=== PATIENT | female | born 1985 | race American Indian/Alaskan Native ===

== ENCOUNTER 2019-05-25 15:15 | Emergency (ER) | payer SELFPAY ==
--- NOTE | 2019-05-25 15:52 | Event Note ---
ED Screening Note Date of service: 05/25/19 Time: 15:51 ED Screening Note: 34 y o female presents with headache s/p syncopal episode in the shower at home today, no injury head This initial assessment/diagnostic orders/clinical plan/treatment(s) is/are subject to change based on patients health status, clinical progression and re- assessment by fellow clinical providers in the ED. Further treatment and workup at subsequent clinical providers discretion. Patient/guardian urged not to elope from the ED as their condition may be serious if not clinically assessed and managed. Initial orders include: labs,ua, acc eval
[2019-05-25 15:54] VITALS: BP 141/85
[2019-05-25 16:31] LABS: Bilirubin,Urine NEG (Negative); Blood,Urine NEG (Negative); Color,Urine Yellow (Yellow); Mucus,Urine FEW /HPF; Protein,Urine <15 mg/dL mg/dL (Negative); Urobilinogen,Urine < 2.0 mg/dL (<2.0)
[2019-05-25 19:08] LABS: Basophils % (Auto) 0.1 % (0.0-1.8); Eosinophils % (Auto) 1.1 % (0.0-4.3); Hematocrit 36.3 % (30.3-42.9); Hemoglobin 11.4 gm/dl (10.1-14.3); Lymphocytes # (Auto) 1.1 K/mm3 (1.2-5.4); Lymphocytes % (Auto) 28.5 % (13.4-35.0); Mean Corpuscular HGB Conc 31 % (30-34); Mean Corpuscular Volume 76 fl (79-97); Monocytes # (Auto) 0.3 K/mm3 (0.0-0.8); Monocytes % (Auto) 8.3 % (0.0-7.3); Platelet Count 161 K/mm3 (140-440); Red Cell Distribution Width 14.3 % (13.2-15.2)
[2019-05-25 19:24] LABS: Alanine Aminotransferase 11 units/L (7-56); Albumin 4.1 g/dL (3.9-5); BUN/Creatinine Ratio 15; Blood Urea Nitrogen 9 mg/dL (7-17); Calcium 9.1 mg/dL (8.4-10.2); Hemolysis Index 4
--- NOTE | 2019-05-25 20:11 | XRay Report ---
CHEST 2 VIEWS INDICATION / CLINICAL INFORMATION: Syncope upt. COMPARISON: None available. FINDINGS: SUPPORT DEVICES: None. HEART / MEDIASTINUM: No significant abnormality. LUNGS / PLEURA: No significant pulmonary or pleural abnormality. No pneumothorax. ADDITIONAL FINDINGS: No significant additional findings. IMPRESSION: 1. No acute findings. Signer Name: Chase Jeter MD Signed: 05/25/2019 8:07 PM Workstation Name: [id number]
[2019-05-26] MEDS ORDERED: diphenhydrAMINE 25 MG CAP PO ONE (00:48)
[2019-05-26] MEDS ORDERED: METOCLOPRAMIDE 10 MG TAB PO ONE (00:48)
--- NOTE | 2019-05-26 01:20 | Cat Scan Report ---
CT head/brain wo con INDICATION / CLINICAL INFORMATION: 34 years Female; syncope. TECHNIQUE: Routine CT head without contrast. All CT scans at this location are performed using CT dos e reduction for ALARA by means of automated exposure control. COMPARISON: None. FINDINGS: BRAIN / INTRACRANIAL CONTENTS: No acute hemorrhage, mass effect, midline shift, hydrocephalus, or acu te, large territorial infarct. No chronic infarct or atrophy appreciated. No significant white matter abnormality. CRANIOCERVICAL JUNCTION: No significant abnormality. ORBITS: No significant abnormality of visualized orbits. SINUSES / MASTOIDS: No significant abnormality the visualized paranasal sinuses or mastoid air cells. ADDITIONAL FINDINGS: Prominent soft tissue is seen in the roof the nasopharynx, presumably related to reactive adenoidal tissue. Please clinically correlate. IMPRESSION: 1. No focal mass, hemorrhage, hydrocephalus, or acute, large territorial infarct. Signer Name: Everton Walker MD, III Signed: 05/26/2019 1:15 AM Workstation Name: [id number]
--- NOTE | 2019-05-26 01:42 | Emergency Department Report ---
ED Syncope HPI - General Chief Complaint: Syncope Stated Complaint: BLACKOUT/DIZZINES Time Seen by Provider: 05/26/19 00:36 - History of Present Illness Initial Comments: Patient is a 30-year-old who presents to emergency room with complaints of a syncopal episode that occurred earlier today. Patient states that she was shampooing her hair in the shower when she had the syncopal episode and woke up laying in the floor of the bathtub. She states she before the syncopal episode that she felt a tingling sensation in her right arm and the right side of her face. she denies the tingling at all currently. She denies any dizziness or chest pain prior to the episode. She denies any nausea, vomiting, diarrhea, fever, recent illness, vision changes, numbness, weakness, speech or gait disturbance. She states that she does have a throbbing headache currently. She states that she had a similar episode in December of this year. she states she has a PMHx of migraines since childhood. She states her last cycle was 2 weeks ago. She is a nonsmoker, nondrinker, nondrug use. - Related Data Allergies/Adverse Reactions: Allergies adhesive Allergy (Verified 05/25/19 15:54) Rash aspirin Allergy (Verified 05/25/19 15:54) Hives butorphanol tartrate [From Stadol] Allergy (Verified 05/25/19 15:54) irrirational behaviour magnesium Allergy (Verified 05/25/19 15:54) bradycardia oxytocin [From Pitocin] Allergy (Verified 05/25/19 15:54) bradycardia Home Medications: Ambulatory Orders Ciprofloxacin HCl [Ciprofloxacin TAB] 500 mg PO BID #14 tablet 07/16/15 Famotidine [Pepcid] 20 mg PO DAILY #30 tablet 07/16/15 traMADoL [Ultram 50 MG tab] 50 - 100 mg PO Q8HR PRN #20 tablet 07/16/15 ED Review of Systems ROS: Stated complaint: BLACKOUT/DIZZINES Other details as noted in HPI Comment: All other systems reviewed and negative ED Past Medical Hx - Past Medical History Previous Medical History?: Yes Hx Hypertension: No Hx Congestive Heart Failure: No Hx Diabetes: No Hx Deep Vein Thrombosis: No Hx Pulmonary Embolism: Yes (2011) Hx Renal Disease: No Hx Sickle Cell Disease: No Hx Headaches / Migraines: Yes (migraines in the past) Hx Seizures: No Hx Asthma: No Hx COPD: No Hx HIV: No - Surgical History Past Surgical History?: Yes Additional Surgical History: tubal ligation - Social History Smoking Status: Current Every Day Smoker Substance Use Type: None - Medications Home Medications: Home Medications Medication Instructions Recorded Confirmed Last Taken Type Ciprofloxacin HCl [Ciprofloxacin 500 mg PO BID #14 tablet 07/16/15 Unknown Rx TAB] Famotidine [Pepcid] 20 mg PO DAILY #30 tablet 07/16/15 Unknown Rx traMADoL [Ultram 50 MG tab] 50 - 100 mg PO Q8HR PRN #20 tablet 07/16/15 Unknown Rx ED Physical Exam - General Limitations: No Limitations General appearance: alert, in no apparent distress - Head Head exam: Present: atraumatic, normocephalic - Eye Eye exam: Present: normal appearance - ENT ENT exam: Present: mucous membranes moist - Respiratory Respiratory exam: Present: normal lung sounds bilaterally. Absent: respiratory distress, wheezes, rales, rhonchi, stridor, chest wall tenderness, accessory muscle use, decreased breath sounds, prolonged expiratory - Cardiovascular Cardiovascular Exam: Present: regular rate, normal rhythm, normal heart sounds. Absent: systolic murmur, diastolic murmur, rubs, gallop - Neurological Exam Neurological exam: Present: alert, oriented X3, CN II-XII intact, normal gait, other (normal finger to nose, normal heel to cooper, 5/5 muscle strength in the BUE/BLE, equal biology professor strength, sensation intact throughout, no focal neuro deficit). Absent: motor sensory deficit - Psychiatric Psychiatric exam: Present: normal affect, normal mood - Skin Skin exam: Present: warm, dry, intact ED Course Vital Signs 05/25/19 05/26/19 15:51 02:19 Temperature 98.2 F Pulse Rate 77 68 Respiratory 18 16 Rate Blood Pressure 141/85 [Right] O2 Sat by Pulse 98 100 Oximetry ED Medical Decision Making - Lab Data Result diagrams: 05/25/19 18:32 05/25/19 18:32 Lab Results 05/25/19 05/25/19 05/25/19 Range/Units 16:14 18:32 18:32 WBC 4.0 L (4.5-11.0) K/mm3 RBC 4.80 (3.65-5.03) M/mm3 Hgb 11.4 (10.1-14.3) gm/dl Hct 36.3 (30.3-42.9) % MCV 76 L (79-97) fl MCH 24 L (28-32) pg MCHC 31 (30-34) % RDW 14.3 (13.2-15.2) % Plt Count 161 (140-440) K/mm3 Lymph % (Auto) 28.5 (13.4-35.0) % Wythe % (Auto) 8.3 H (0.0-7.3) % Eos % (Auto) 1.1 (0.0-4.3) % Baso % (Auto) 0.1 (0.0-1.8) % Lymph # 1.1 L (1.2-5.4) K/mm3 Wythe # 0.3 (0.0-0.8) K/mm3 Eos # 0.0 (0.0-0.4) K/mm3 Baso # 0.0 (0.0-0.1) K/mm3 Seg Neutrophils % 62.0 (40.0-70.0) % Seg Neutrophils # 2.5 (1.8-7.7) K/mm3 Sodium 143 (137-145) mmol/L Potassium 3.7 (3.6-5.0) mmol/L Chloride 108.7 H (98-107) mmol/L Carbon Dioxide 23 (22-30) mmol/L Anion Gap 15 mmol/L BUN 9 (7-17) mg/dL Creatinine 0.6 L (0.7-1.2) mg/dL Estimated GFR > 60 ml/min BUN/Creatinine Ratio 15 % Glucose 110 H (65-100) mg/dL Calcium 9.1 (8.4-10.2) mg/dL Total Bilirubin 0.30 (0.1-1.2) mg/dL AST 14 (5-40) units/L ALT 11 (7-56) units/L Alkaline Phosphatase 72 (35-129) units/L Troponin T (0.00-0.029) ng/mL Total Protein 7.3 (6.3-8.2) g/dL Albumin 4.1 (3.9-5) g/dL Albumin/Globulin Ratio 1.3 % HCG, Qual (Negative) Urine Color Yellow (Yellow) Urine Turbidity Clear (Clear) Urine pH 5.0 (5.0-7.0) Ur Specific Rose 1.020 (1.003-1.030) Urine Protein <15 mg/dl (Negative) mg/dL Urine Glucose (UA) Neg (Negative) mg/dL Urine Ketones Neg (Negative) mg/dL Urine Blood Neg (Negative) Urine Nitrite Neg (Negative) Urine Bilirubin Neg (Negative) Urine Urobilinogen < 2.0 (<2.0) mg/dL Ur Leukocyte Esterase Mod (Negative) Urine WBC (Auto) 4.0 (0.0-6.0) /HPF Urine RBC (Auto) 3.0 (0.0-6.0) /HPF U Epithel Cells (Auto) 7.0 (0-13.0) /HPF Urine Mucus Few /HPF 05/25/19 05/26/19 Range/Units 18:32 Unknown WBC (4.5-11.0) K/mm3 RBC (3.65-5.03) M/mm3 Hgb (10.1-14.3) gm/dl Hct (30.3-42.9) % MCV (79-97) fl MCH (28-32) pg MCHC (30-34) % RDW (13.2-15.2) % Plt Count (140-440) K/mm3 Lymph % (Auto) (13.4-35.0) % Wythe % (Auto) (0.0-7.3) % Eos % (Auto) (0.0-4.3) % Baso % (Auto) (0.0-1.8) % Lymph # (1.2-5.4) K/mm3 Wythe # (0.0-0.8) K/mm3 Eos # (0.0-0.4) K/mm3 Baso # (0.0-0.1) K/mm3 Seg Neutrophils % (40.0-70.0) % Seg Neutrophils # (1.8-7.7) K/mm3 Sodium (137-145) mmol/L Potassium (3.6-5.0) mmol/L Chloride (98-107) mmol/L Carbon Dioxide (22-30) mmol/L Anion Gap mmol/L BUN (7-17) mg/dL Creatinine (0.7-1.2) mg/dL Estimated GFR ml/min BUN/Creatinine Ratio % Glucose (65-100) mg/dL Calcium (8.4-10.2) mg/dL Total Bilirubin (0.1-1.2) mg/dL AST (5-40) units/L ALT (7-56) units/L Alkaline Phosphatase (35-129) units/L Troponin T < 0.010 (0.00-0.029) ng/mL Total Protein (6.3-8.2) g/dL Albumin (3.9-5) g/dL Albumin/Globulin Ratio % HCG, Qual Negative (Negative) Urine Color (Yellow) Urine Turbidity (Clear) Urine pH (5.0-7.0) Ur Specific Rose (1.003-1.030) Urine Protein (Negative) mg/dL Urine Glucose (UA) (Negative) mg/dL Urine Ketones (Negative) mg/dL Urine Blood (Negative) Urine Nitrite (Negative) Urine Bilirubin (Negative) Urine Urobilinogen (<2.0) mg/dL Ur Leukocyte Esterase (Negative) Urine WBC (Auto) (0.0-6.0) /HPF Urine RBC (Auto) (0.0-6.0) /HPF U Epithel Cells (Auto) (0-13.0) /HPF Urine Mucus /HPF - EKG Data EKG shows normal: sinus rhythm, axis, intervals, QRS complexes Rate: normal - EKG Data 05/26/19 01:57 non specific T wave inversion V1, V2, V3 no STEMI - Radiology Data Radiology results: report reviewed CT head/brain wo con INDICATION / CLINICAL INFORMATION: 34 years Female; syncope. TECHNIQUE: Routine CT head without contrast. All CT scans at this location are performed using CT dose reduction for ALARA by means of automated exposure control. COMPARISON: None. FINDINGS: BRAIN / INTRACRANIAL CONTENTS: No acute hemorrhage, mass effect, midline shift, hydrocephalus, or acute, large territorial infarct. No chronic infarct or atrophy appreciated. No significant white matter abnormality. CRANIOCERVICAL JUNCTION: No significant abnormality. ORBITS: No significant abnormality of visualized orbits. SINUSES / MASTOIDS: No significant abnormality the visualized paranasal sinuses or mastoid air cells. ADDITIONAL FINDINGS: Prominent soft tissue is seen in the roof the nasopharynx, presumably related to reactive adenoidal tissue. Please clinically correlate. IMPRESSION: 1. No focal mass, hemorrhage, hydrocephalus, or acute, large territorial infarct. Signer Name: Everton Walker MD, III Signed: 05/26/2019 1:15 AM Workstation Name: [id number] Transcribed By: HR Dictated By: Everton Walker MD Electronically Authenticated By: Everton Walker MD Signed Date/Time: 05/26/19114 DD/ 3 TD/TT: CHEST 2 VIEWS INDICATION / CLINICAL INFORMATION: Syncope upt. COMPARISON: None available. FINDINGS: SUPPORT DEVICES: None. HEART / MEDIASTINUM: No significant abnormality. LUNGS / PLEURA: No significant pulmonary or pleural abnormality. No pneumothorax. ADDITIONAL FINDINGS: No significant additional findings. IMPRESSION: 1. No acute findings. Signer Name: Chase Jeter MD Signed: 05/25/2019 8:07 PM Workstation Name: [id number] Transcribed By: TL Dictated By: Chase Jeter MD Electronically Authenticated By: Chase Jeter MD Signed Date/Time: 05/25/19 2007 - Medical Decision Making Patient is a 30-year-old who presents to emergency room with complaints of a syncopal episode that occurred earlier today. Patient states that she was shampooing her hair in the shower when she had the syncopal episode and woke up laying in the floor of the bathtub. She states she before the syncopal episode that she felt a tingling sensation in her right arm and the right side of her face. she denies the tingling at all currently. She denies any dizziness or chest pain prior to the episode. She denies any nausea, vomiting, diarrhea, fever, recent illness, vision changes, numbness, weakness, speech or gait disturbance. She states that she does have a throbbing headache currently. She states that she had a similar episode in December of this year. she states she has a PMHx of migraines since childhood. She states her last cycle was 2 weeks ago. She is a nonsmoker, nondrinker, nondrug use. VSS. labs are stable. UA without evidence of UTI. troponin is negative. CT head and CXR with no acute findings. PERC criteria negative for PE. on exam: normal finger to nose, normal heel to cooper, 5/5 muscle strength in the BUE/BLE, equal biology professor strength, sensation intact throughout, no focal neuro deficit. pt given reglan and benadryl while in the ED and her symptoms completely resolved. Symptoms could be related to a complex migraine, will have patient follow-up with a neurologist on an outpatient basis for further evaluation and management. advised pt to please follow up with a primary care doctor and a neurologist in the next 2-3 days. Return to the emergency room for any worsening symptoms. - Differential Diagnosis complex migraine, hypotension, hypoglycemia, CVA, ICH, arrhythmia Critical care attestation.: If time is entered above; I have spent that time in minutes in the direct care of this critically ill patient, excluding procedure time. ED Disposition Clinical Impression: Syncope Qualifiers: Syncope type: unspecified Qualified Code(s): R55 - Syncope and collapse Headache Qualifiers: Headache type: unspecified Headache chronicity pattern: acute headache Intractability: not intractable Qualified Code(s): R51 - Headache Disposition: DC-01 TO HOME OR SELFCARE Is pt being admited?: No Does the pt Need Aspirin: No Condition: Stable Instructions: Syncope (ED) Additional Instructions: Please follow up with a primary care doctor and a neurologist in the next 2-3 days. Return to the emergency room for any worsening symptoms. Referrals: TRISHA CHOUDHARY MD [Staff Physician] - 2-3 Days VIKI MEDINA MD [Staff Physician] - 2-3 Days [facility] [Outside] - 2-3 Days JOSE A VILLAGOMEZ MD [Staff Physician] - 2-3 Days Time of Disposition: 01:58 Print Language: BULGARIAN
== END 2019-05-26 02:19 | disposition home or self-care (01) ==
LOC: ED 15:15
DX: R55 Syncope and collapse (principal); G43.909 Migraine, unspecified, not intractable, without status migrainosus; F17.200 Nicotine dependence, unspecified, uncomplicated; Z86.711 Personal history of pulmonary embolism; Z98.51 Tubal ligation status; Z88.6 Allergy status to analgesic agent; Z91.048 Other nonmedicinal substance allergy status; Z88.8 Allergy status to other drugs, medicaments and biological substances
CPT/HCPCS: 36415; 70450; 71046; 80053; 81001; 84484; 84703; 85025; 93005; 93010